=== PATIENT | female | born 1985 | race Caucasian/White ===

== ENCOUNTER 2017-06-08 18:51 | Emergency (ER) | payer OTHER ==
[~2017-06-08] VITALS: Ht 162.6 cm; Wt 61.2 kg
[~2017-06-08 18:51] MED LIST: IBUP-1222 PO; OXYC-302 PO
[2017-06-08] MEDS ORDERED: DIAZEPAM 5 MG TABLET PO ONE (19:30)
[2017-06-08] MEDS ORDERED: DIAZEPAM 5 MG TABLET ONE (19:32)
[2017-06-08 19:43] LABS: HEMATOCRIT 40.2 % (34.6-47.8); HEMOGLOBIN 13.1 g/dL (11.7-16.4); WHITE BLOOD COUNT 8.5 x10^3/uL (3.4-10)
[2017-06-08 19:55] LABS: BLOOD UREA NITROGEN 11 mg/dL (7-18)
[2017-06-08 20:00] LABS: IS PT STATUS REG ER OR PRE ER? YES
[2017-06-08 20:38] VITALS: BP 114/79
== END 2017-06-08 20:40 | disposition home or self-care (01) ==
LOC: ED 20:34
DX: R42 Dizziness and giddiness (principal); R20.2 Paresthesia of skin
CPT/HCPCS: 36415; 71010; 80048; 82040; 83880; 84484; 84703; 85025; 93005; 99285

== ENCOUNTER 2017-06-11 09:49 | Emergency (ER) | payer OTHER ==
[~2017-06-11] VITALS: Ht 162.6 cm; Wt 61.1 kg
[2017-06-11] MEDS ORDERED: LORazepam 1MG TABLET PO ONE (11:00)
[2017-06-11] MEDS ORDERED: LORazepam 1MG TABLET ONE (11:00)
[2017-06-11 11:06] LABS: HEMATOCRIT 40.5 % (34.6-47.8); HEMOGLOBIN 13.4 g/dL (11.7-16.4)
[2017-06-11] MEDS ORDERED: DIAZ5TAB PO (11:13)
[2017-06-11 11:17] LABS: BLOOD UREA NITROGEN 13 mg/dL (7-18)
[2017-06-11] MEDS ORDERED: OMNIPAQUE 350 MG/ML, 100ML BOTTLE ONE (13:37)
[2017-06-11 17:29] VITALS: BP 114/74
== END 2017-06-11 17:32 | disposition home or self-care (01) ==
LOC: ED 16:45
DX: R06.00 Dyspnea, unspecified (principal); F41.1 Generalized anxiety disorder; R06.4 Hyperventilation
CPT/HCPCS: 36415; 71020; 71275; 80048; 82040; 84484; 84703; 85025; 85379; 93005; 99285; Q9967